=== PATIENT | male | born 2000 ===

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

== ENCOUNTER → 2020-03-14 | Outpatient (CLI) | payer OTHER ==
[2020-03-18 06:09] LABS: CHLAMYDIA TRACHOMATIS, NAA Negative (Negative); NEISSERIA GONORRHOEAE, NAA Negative (Negative)
== END | disposition home or self-care (01) ==
LOC: LAB SHORT 18:09 → LAB 18:09
PROVIDERS: Physician Assistant
DX: N48.89 Other specified disorders of penis (principal)
CPT/HCPCS: 87070; 87205; 87491; 87591

== ENCOUNTER 2025-02-12 20:16 | Emergency (ER) | payer OTHER ==
[~2025-02-12] VITALS: Ht 172.7 cm; Wt 63.5 kg
[2025-02-12 21:35] VITALS: BP 143/89
== END 2025-02-12 21:37 | disposition home or self-care (01) ==
LOC: ER 20:16
DX: S61.011A Laceration without foreign body of right thumb without damage to nail, initial encounter (principal); W26.9XXA Contact with unspecified sharp object(s), initial encounter
CPT/HCPCS: 12001; 90471; 90715; 99282-25